=== PATIENT | male | born 1945 | race Caucasian/White ===

== ENCOUNTER → 2017-02-06 | Outpatient (CLI) | payer OTHER | LOC: FIMAGING 08:37 | PROVIDERS: ATTEND Family Medicine | DX: Z13.6 Encounter for screening for cardiovascular disorders (principal); Z82.49 Family history of ischemic heart disease and other diseases of the circulatory system ==

== ENCOUNTER 2017-07-06 22:55 | Emergency (ER) | payer OTHER ==
[2017-07-06 22:59] VITALS: BP 130/78; PULSE 61; RESP 16; TEMP 98.2; O2SAT 95
== END 2017-07-07 00:19 | disposition left against medical advice (07) ==
DX: Z53.21 Procedure and treatment not carried out due to patient leaving prior to being seen by health care provider (principal)

== ENCOUNTER 2017-07-07 01:18 | Emergency (ER) | payer OTHER ==
[2017-07-07 01:36] VITALS: TEMP 97.9
[2017-07-07] MEDS ORDERED: OXYMETAZOLINE 30 ML NASAL SPRAY EACHNARE ONE (02:07)
[2017-07-07] MEDS ORDERED: TRANEXAMIC ACID 1,000 MG/10 ML VIAL TP ONE (02:15)
--- NOTE | 2017-07-07 02:20 | EDPHY ---
H & P Stated Complaint: nose bleed since 10 p.m. Time Seen by Provider: 07/07/17 02:04 HPI/ROS: HPI The patient presents with epistaxis which has been present since 10:00 p.m. tonight which started suddenly and has been constant ever since. His use nasal clamps which she has from a previous episode, however this did not improve his symptoms. He has passed some clots of blood. He is taking aspirin 81 mg. His with his last episode in 2014 he did have cauterization performed by [facility] and has not had any other episodes until tonight.. REVIEW OF SYSTEMS Constitutional: No fever, no chills. Eyes: No discharge. ENT: No sore throat. Genitourinary: No hematuria. Musculoskeletal: No back pain. Skin: No rashes. Neurological: No headache. PMHx: Hyperlipidemia Soc Hx: Housed PHYSICAL General Appearance: Alert, no distress Eyes: Pupils equal and round no pallor or injection ENT, Mouth: Right naris with active bleeding, unable to localize source on nasal speculum exam, Mucous membranes moist Respiratory: Breathing comfortably Neurological: A&O, moves all extremities Skin: Warm and dry, no rashes Musculoskeletal: Neck is supple non tender Extremities: symmetrical, full range of motion Psychiatric: Patient is oriented X 3, there is no agitation Source: Patient Exam Limitations: No limitations - Personal History Current Tetanus/Diphtheria Vaccine: Yes Current Tetanus Diphtheria and Acellular Pertussis (TDAP): Yes - Medical/Surgical History Hx Asthma: No Hx Chronic Respiratory Disease: No Hx Diabetes: No Hx Cardiac Disease: No Hx Renal Disease: No Hx Cirrhosis: No Hx Alcoholism: No Hx HIV/AIDS: No Hx Splenectomy or Spleen Trauma: No Other PMH: hyperlipidemia - Social History Smoking Status: Never smoked Constitutional: Initial Vital Signs Temperature (C) 36.6 C 07/07/17 01:25 Heart Rate 54 L 07/07/17 01:25 Respiratory Rate 16 07/07/17 01:25 Blood Pressure 139/88 H 07/07/17 01:25 O2 Sat (%) 95 07/07/17 01:25 O2 Delivery Mode Room Air Allergies/Adverse Reactions: Sulfa (Sulfonamide Antibiotics) Allergy (Verified 07/06/17 23:00) Unknown Home Medications: Medication Instructions Recorded Aspirin [Aspirin 81mg (*)] 81 mg PO DAILY18 06/12/14 Lovastatin 10 mg PO DAILY18 06/12/14 Glucosamine/Chondroitin 1 each PO DAILY 02/19/17 [Glucosamine/Chondroitin (*)] Herbals/Supplements -Info Only 1 ea PO DAILY 02/19/17 Tamsulosin HCl [Flomax 0.4 MG (*)] 0.4 mg PO DAILY18 02/19/17 Medical Decision Making Procedures: NOSE BLEED Procedure: Epistaxis control. Indication: nosebleed not controlled by direct pressure. Risks, benefits, alternatives discussed with patient and consent obtained. The right nares was anesthetized with Afrin. The anterior epistaxis was identified. The patient was treated with packing. Using TXA soaked gauze Following the procedure the patient was re-examined and the bleeding was well controlled. The patient tolerated the procedure well. The procedure was performed by myself. Differential Diagnosis: 71-year-old man presents with epistaxis for the last 4 hr, not improved with nasal clamp or Afrin at home. On examination, I cannot visualize the area of bleeding, thus cautery was not performed. He was packed with tranexamic acid. When packing was removed after 30 min, bleeding had subsided and he was feeling much better. He will be discharged home with follow-up with ENT. - Data Points Medications Given: Discontinued Medications Oxymetazoline HCl (Afrin Nasal [place]) 2 sprays EACHNARE EDNOW ONE Stop: 07/07/17 02:08 Last Admin: 07/07/17 02:56 Dose: Not Given Tranexamic Acid (Cyklokapron) 500 mg TP EDNOW ONE Stop: 07/07/17 02:16 Last Admin: 07/07/17 02:40 Dose: 500 mg Departure - Departure Disposition: Home, Routine, Self-Care Clinical Impression: Acute anterior epistaxis Condition: Good Instructions: Nosebleed (ED) Additional Instructions: Please follow-up with your ENT doctor in the next few days. If the bleeding starts again, use the nasal clamps and Afrin. Referrals: Jasmyne Plaza MD [Primary Care Provider] - As per Instructions Mariama Maravilla PA [Physician Living Specialist] - As per Instructions
[2017-07-07 03:17] VITALS: BP 113/79; PULSE 55; RESP 18; O2SAT 96
== END 2017-07-07 03:24 | disposition home or self-care (01) ==
DX: R04.0 Epistaxis (principal); Z79.82 Long term (current) use of aspirin

== ENCOUNTER 2017-07-12 09:11 | Emergency (ER) | payer OTHER ==
--- NOTE | 2017-07-12 09:42 | EDPHY ---
H & P Stated Complaint: tripped on sidewalk on , right arm injury Source: Patient Exam Limitations: No limitations - Personal History Current Tetanus/Diphtheria Vaccine: Yes Current Tetanus Diphtheria and Acellular Pertussis (TDAP): Yes Tetanus Vaccine Date: < 10 years - Medical/Surgical History Hx Asthma: No Hx Chronic Respiratory Disease: No Hx Diabetes: No Hx Cardiac Disease: No Hx Renal Disease: No Hx Cirrhosis: No Hx Alcoholism: No Hx HIV/AIDS: No Hx Splenectomy or Spleen Trauma: No Other PMH: hyperlipidemia - Social History Smoking Status: Never smoked Time Seen by Provider: 07/12/17 09:41 HPI/ROS: HPI: This is a 71-year-old male who presents with Chief Complaint: tripped on sidewalk on , right arm injury Location: Right forearm, right elbow Quality: Injury Duration: 3 days ago Signs and Symptoms: No bleeding, no radiation, no numbness, no weakness, no tingling, no incontinence, no decreased range of motion, + swelling, + pain Timing: Gradual onset Severity: [id number] Context: Patient was in [place] he was originally from, walking down the sidewalk, when he accidentally tripped on a tree root the had pushed the cement up and made irregular pathway. He reports that he saw the regular 80 in the cement but unfortunately the tip of his shoe caught the edge and he ended up falling forward. He put both hands out to brace his fall. He reports that he sustained abrasions to both palms of hands and to the tip of his nose. Since this fall, he has noted some swelling and discomfort in his right elbow and right forearm area. He has some ecchymosis in the area of discomfort. Right- hand dominant. Takes a baby aspirin daily. No LOC/amnesia/nausea/vomiting/ paresthesias/weakness. Modifying Factors: None Comment: ROS: see HPI Constitutional: No fever, no chills, no weight loss Eyes: No blurred vision Respiratory: No shortness of breath, no cough Cardiovascular: No chest pain Gastrointestinal: No nausea, no vomiting no diarrhea Genitourinary: No dysuria Extremities: No myalgias Neurologic: No weakness, no numbness Skin: No rashes Hematologic: No bruising, no bleeding MEDICAL/SURGICAL/SOCIAL HISTORY: Medical history: Hyperlipidemia Surgical history: Denies Social history: . CONSTITUTIONAL: Elderly adult male, awake and alert, no obvious distress HEENT: Atraumatic and normocephalic. NECK: supple, no midline tenderness, flexion 45 degrees, extension 45 degrees, right and left lateral flexion 45 degrees. No meningismus. Cardiovascular: Normal S1/S2, regular rate, regular rhythm, without murmur rub or gallop. PULMONARY/CHEST: Symmetrical and nontender. no crepitus. Clear to auscultation bilaterally. Good air movement. No accessory muscle usage. ABDOMEN: Soft, nondistended, nontender, no ecchymosis. PELVIC: no pain with rocking; bilateral hips flexion 125 degrees, extension 30 degrees, with no pain internal rotation and no pain external rotation. BACK: No midline tenderness, no paraspinous spasm, deep tendon reflexes 2/2, no pain with straight leg raise EXTREMITIES: 2/2 radial pulses, strength 5/5, right SHOULDER: Arc test abduction to 180, abduction to 45, horizontal flexion 130, horizontal extension to 45, deltoid strength 5/5. No pain with Neer test/Doe test ( impingement). No Tenderness to palpation over AC joint. Right ELBOW: Full extension to 180, flexion to 150, mild tenderness over medial epicondyle, mild tenderness over lateral epicondyle, mild effusion. Right WRIST: Extension to 70, flexion to 80, radial deviation to 20 degree, ulnar deviation to 30, no scaphoid tenderness, no tenderness over ulnar styloid, no tenderness over radial styloid, no pain with Kellie test. Right forearm volar middle portion shows mild swelling with ecchymosis. DIP/PIP/MCP flexion/ extension intact with good light touch sensation. no deformities, no clubbing, no cyanosis or edema. NEUROLOGICAL: no focal neuro deficits. GCS 15. Light touch sensation intact. SKIN: Warm and dry, no erythema. no rash. Good capillary refill. (Oscar,Terra) Constitutional: Initial Vital Signs Temperature (C) 36.6 C 07/12/17 09:13 Heart Rate 59 L 07/12/17 09:13 Respiratory Rate 18 07/12/17 09:13 Blood Pressure 109/62 07/12/17 09:13 O2 Sat (%) 95 07/12/17 09:13 O2 Delivery Mode Room Air Allergies/Adverse Reactions: Sulfa (Sulfonamide Antibiotics) Allergy (Verified 07/12/17 09:13) Unknown Home Medications: Medication Instructions Recorded Aspirin [Aspirin 81mg (*)] 81 mg PO DAILY18 06/12/14 Lovastatin 10 mg PO DAILY18 06/12/14 Glucosamine/Chondroitin 1 each PO DAILY 02/19/17 [Glucosamine/Chondroitin (*)] Herbals/Supplements -Info Only 1 ea PO DAILY 02/19/17 Tamsulosin HCl [Flomax 0.4 MG (*)] 0.4 mg PO DAILY18 02/19/17 Medical Decision Making - Diagnostics Imaging Results: Imaging Impressions Elbow X-Ray 07/12/17 09:19 Impression: Radial head articular surface fracture. 2. Right Forearm, 2 Views Clinical Indications: Pain post trauma, fall on July 09. Findings: Radial head fracture is faintly visualized. The remainder of the radius and ulna are normal. Impression: No additional radial or ulnar fracture identified. Procedures: Procedure: Splint placement. A right long-arm posterior splint was applied the Emergency Room pump technician. After application of the splint I returned and re-examined the patient. The splint was adequately immobilizing the joint and distal to the splint the patient's circulation and sensation was intact. (Dulce Maria Moore) ED Course/Re-evaluation: Right elbow x-ray, right forearm x-ray ordered No signs of neurovascular compromise/tenting of skin/compartment syndrome/ extremities and joints examined above and below area of concern and are neurovascularly intact. X-ray shows nondisplaced very hard to see right radial head fracture; transverse Placed in long-arm posterior splint; given sling; rice therapy; pain control; Ortho follow-up This patient was seen under the supervision of my secondary supervising physician. I evaluated care for this patient independently. (Dulce Maria Moore) I did not see this patient while he was in the emergency department. However his care was discussed with the PA while the patient was in the department. I agree with treatment plan and management (Artemio Colindres) Differential Diagnosis: Differential diagnosis includes but is not limited to fracture, sprain, contusion, nerve injury, tendon injury. (Dulce Maria Moore) Departure - Departure Disposition: Home, Routine, Self-Care Clinical Impression: Right radial head fracture Qualifiers: Encounter type: initial encounter Fracture type: closed Fracture alignment: nondisplaced Qualified Code(s): S52.124A - Nondisplaced fracture of head of right radius, initial encounter for closed fracture Condition: Good Instructions: Elbow Fracture (ED) Additional Instructions: Keep the splint dry and in place until seen by Orthopedics for follow-up. Take Tylenol 650 mg every 4 hours and/or Ibuprofen 600 mg every 8 hours with food as needed for pain. Apply ice for 30 minutes at a time; 2-3 times per day for the next 1-2 days. Follow up with Orthopedics in 7-10 days at which time they will evaluate and recommend with you if conservative management versus adjuvant therapy is indicated. Referrals: Jasmyne Plaza MD [Primary Care Provider] - As per Instructions Tash Berry MD [Medical Doctor] - As per Instructions
[2017-07-12 11:08] VITALS: BP 112/70; PULSE 60; RESP 12; TEMP 98.2; O2SAT 98
== END 2017-07-12 11:08 | disposition home or self-care (01) ==
DX: S52.124A Nondisplaced fracture of head of right radius, initial encounter for closed fracture (principal); Z79.82 Long term (current) use of aspirin; W01.0XXA Fall on same level from slipping, tripping and stumbling without subsequent striking against object, initial encounter; Y92.480 Sidewalk as the place of occurrence of the external cause; Y93.01 Activity, walking, marching and hiking
CPT/HCPCS: 73080; 73090; 99283; A4565